=== PATIENT | male | born 1975 | race Caucasian/White ===

== ENCOUNTER 2021-01-25 00:48 | Emergency (ER) | payer MEDICAID ==
[~2021-01-25] VITALS: Ht 177.8 cm; Wt 115.5 kg
--- NOTE | 2021-01-25 01:29 | NUR ---
pt phone number [phone] he will be in RV
[2021-01-25 01:38] LABS: BASOPHILS # (AUTO) 0.1 X10'3 (0-0.2); BASOPHILS % (AUTO) 0.9 % (0-1); EOSINOPHILS # (AUTO) 0.3 X10'3 (0-0.9); EOSINOPHILS % (AUTO) 2.8 % (0-6); HEMATOCRIT 37.5 % (42.0-52.0); HEMOGLOBIN 12.6 g/dl (14.0-17.9); LYMPHOCYTES # (AUTO) 2.7 X10'3 (1.1-4.8); LYMPHOCYTES % (AUTO) 28.9 % (21-51); MEAN CORPUSCULAR HEMOGLOBIN 29.2 PG (27.0-31.0); MEAN CORPUSCULAR HGB CONC 33.6 g/dL (33.0-36.5); MEAN PLATELET VOLUME 8.9 FL (7.4-10.4); MONOCYTES # (AUTO) 0.9 X10'3 (0-0.9); MONOCYTES % (AUTO) 9.6 % (2-12); NEUTROPHILS # (AUTO) 5.4 X10'3 (1.8-7.7); NEUTROPHILS % (AUTO) 57.8 % (42-75); PLATELET COUNT 316 X10'3 (140-440); RED BLOOD COUNT 4.31 X10'6 (4.70-6.10); RED CELL DISTRIBUTION WIDTH 15.5 % (11.5-14.5); WHITE BLOOD COUNT 9.3 X10'3 (4.5-11.0)
[2021-01-25 02:04] LABS: ALANINE AMINOTRANSFERASE 27 U/L (12-78); ALBUMIN 3.1 G/DL (3.4-5.0); ALBUMIN/GLOBULIN RATIO 0.6 (1.1-1.5); ALKALINE PHOSPHATASE 75 IU/L (46-116); ANION GAP 13 (8-16); ASPARTATE AMINO TRANSFERASE 17 U/L (10-37); BILIRUBIN,TOTAL 0.4 MG/DL (0.1-1.0); BLOOD UREA NITROGEN 9 MG/DL (7-18); BUN/CREATININE RATIO 7.8 (5.4-32.0); CALCIUM 8.4 MG/DL (8.5-10.1); CHLORIDE 105 MMOL/L (99-107); CREATININE 1.15 MG/DL (0.60-1.10); GLUCOSE 100 MG/DL (70-104); POTASSIUM 3.3 MMOL/L (3.5-5.1); SODIUM 145 MMOL/L (135-145); TOTAL CARBON DIOXIDE 27.5 MMOL/L (24-32); eGFR 69 ML/MIN
[2021-01-25] MEDS ORDERED: normal saline 1000ML IV soln IVB ONE (03:20)
[2021-01-25] MEDS ORDERED: insulin regular, human 10 units/0.1 ml syringe IV ONE (03:20)
[2021-01-25 03:49] LABS: D-DIMER 2.34 MG/L FEU (0-0.50)
[2021-01-25] MEDS ORDERED: potassium Cl 20 mEq SR tablet PO STA (04:06)
--- NOTE | 2021-01-25 04:27 | NUR ---
pt moved from bed 17 to bed 8 vascular us of right leg in progress now.
[2021-01-25 04:42] VITALS: BP 128/77
[2021-01-25] MEDS ORDERED: SULF1TAB49 PO (04:52)
== END 2021-01-25 05:00 | disposition home or self-care (01) ==
LOC: ER 00:50
DX: D64.9 Anemia, unspecified (principal); E87.6 Hypokalemia; R60.0 Localized edema; I87.8 Other specified disorders of veins; J45.909 Unspecified asthma, uncomplicated; Z79.2 Long term (current) use of antibiotics
CPT/HCPCS: 36415; 71045; 80053; 83605; 83880; 84145; 85025; 85379; 87040; 93971; 99285